=== PATIENT | female | born 1990 | race Caucasian/White ===

== ENCOUNTER 2018-07-22 00:55 | Emergency (ER) | payer OTHER ==
[2018-07-22] MEDS ORDERED: NORMAL SALINE 1000 ML 1,000 ML IV ONE (01:54)
[2018-07-22] MEDS ORDERED: METOCLOPRAMIDE HCL INJ/PF 10 MG/2 ML SDV IV ONE (01:55)
--- NOTE | 2018-07-22 01:56 | ER Document Report ---
ED GI/ - General Chief Complaint: Abdominal Pain Stated Complaint: ABDOMINAL CRAMPING Time Seen by Provider: 07/22/18 01:49 Notes: Patient is a 27-year-old female, at 6-8 weeks gestation by last menstrual period, that comes to the emergency department for chief complaint of pelvic pain with cramping that is worsening for the past several days. She states that cramping is slightly worse on the right side. She denies bleeding. She has been vomiting several times a day. She denies fever or chills. She is having normal bowel movements. She denies injury. Denies any past medical history. Family at bedside. TRAVEL OUTSIDE OF THE [place] IN LAST 30 DAYS: No - Related Data Allergies/Adverse Reactions: No Known Allergies Allergy (Unverified 07/22/18 01:54) Past Medical History - General Information source: Patient - Social History Smoking Status: Never Smoker Frequency of alcohol use: None Drug Abuse: None Lives with: Family Family History: Reviewed & Not Pertinent - Medical History Medical History: Negative Surgical Hx: Negative - Immunizations Immunizations up to date: Yes Hx Diphtheria, Pertussis, Tetanus Vaccination: Yes Review of Systems - Review of Systems Constitutional: No symptoms reported EENT: No symptoms reported Cardiovascular: No symptoms reported Respiratory: No symptoms reported Gastrointestinal: See HPI Genitourinary: See HPI Female Genitourinary: See HPI Musculoskeletal: No symptoms reported Skin: No symptoms reported Hematologic/Lymphatic: No symptoms reported Neurological/Psychological: No symptoms reported Physical Exam - Vital signs Vitals: Temp Pulse Resp BP Pulse Ox 98.6 F 66 16 118/64 98 07/22/18 00:56 07/22/18 00:56 07/22/18 00:56 07/22/18 00:56 07/22/18 00:56 - Notes Notes: GENERAL: Alert, interacts well. No acute distress. HEAD: Normocephalic, atraumatic. EYES: Pupils equal, round, and reactive to light. Extraocular movements intact. ENT: Oral mucosa dry, tongue midline. Oropharynx unremarkable. Airway patent. Nares patent, no nasal septal hematoma, TM's intact. NECK: Full range of motion. Supple. Trachea midline. LUNGS: Clear to auscultation bilaterally, no wheezes, rales, or rhonchi. No respiratory distress. HEART: Regular rate and rhythm. No murmur ABDOMEN: Tenderness in the right pelvic area, no severe tenderness or guarding. Nontender McBurney's point. Soft benign abdomen otherwise. No distention. Unremarkable bowel sounds. GENITOURINARY: Deferred EXTREMITIES: Moves all 4 extremities spontaneously. No edema, normal radial and dorsalis pedis pulses bilaterally. No cyanosis. BACK: no cervical, thoracic, lumbar midline tenderness. No saddle anesthesia, normal distal neurovascular exam. NEUROLOGICAL: Alert and oriented x3. Normal speech. [cranial nerves II through XII grossly intact]. PSYCH: Normal affect, normal mood. SKIN: Warm, dry, normal turgor. No rashes or lesions noted. Course - Re-evaluation Re-evalutation: Patient has mild right lower pelvic tenderness without guarding, McBurney's point is negative, remaining abdomen soft and benign. Patient is dry appearing on exam with dry mucous membranes, no tachycardia. Given IV fluids and nausea medication. Patient is well-appearing otherwise. CBC unremarkable, chemistry unremarkable, urine showing ketones in the urine. HCG elevated as expected. RhoGam is not indicated. Ultrasound showing living IUP at 6 weeks 3 days, probable subchorionic hemorrhage, probable resolving cyst on the right ovary. Discussed all findings with patient in detail, provided with copy of the report, discussed recommendations, follow-up, and return precautions. Patient asking for Reglan at home because she feels excellent now. Patient states understanding and agreement with plan. - Vital Signs Vital signs: Temp Pulse Resp BP Pulse Ox 98.6 F 66 16 118/64 98 07/22/18 00:56 07/22/18 00:56 07/22/18 00:56 07/22/18 00:56 07/22/18 00:56 - Laboratory Result Diagrams: 07/22/18 02:23 07/22/18 02:23 Laboratory results interpreted by me: 07/22/18 07/22/18 02:23 03:11 Beta HCG, Quant 94845.00 H Urine Ketones 20 H Discharge - Discharge Clinical Impression: Abdominal cramping affecting , Dehydration Vomiting Qualifiers: Vomiting type: unspecified Vomiting Intractability: non-intractable Nausea presence: with nausea Qualified Code(s): R11.2 - Nausea with vomiting, unspecified Condition: Stable Disposition: HOME, SELF-CARE Additional Instructions: Your ultrasound shows a living in the uterus at 6 weeks and 3 days. There is a cyst that appears to be resolving on the right side and there is a small subchorionic hemorrhage as we discussed. These are probably the cause of your cramping. Recommend pelvic rest (no intercourse, no intense physical activity until cleared by FRONT CLERK). I also recommend that you take the nausea medication and continue to hydrate. Follow up with FRONT CLERK closely. Return if you worsen including severe pain, fever, passing out, heavy bleeding, or any other concerning or worsening symptoms. Prescriptions: Metoclopramide HCl [Reglan] 5 mg PO ASDIR PRN #30 tablet PRN Reason: Referrals: HEYDI BEY MD [Primary Care Provider] - Follow up as needed
[2018-07-22 02:34] LABS: ABSOLUTE BASOPHILS # (AUTO) 0.1 10^3/uL (0.0-0.2); ABSOLUTE LYMPHOCYTES (AUTO) 2.4 10^3/uL (0.5-4.7); ABSOLUTE MONOCYTES (AUTO) 0.5 10^3/uL (0.1-1.4); ABSOLUTE NEUT (AUTO) 6.3 10^3/uL (1.7-8.2); BASOPHILS % (AUTO) 0.6 % (0-2); EOSINOPHILS % (AUTO) 0.4 % (0-6); HEMATOCRIT 40.3 % (36.0-47.0); HEMOGLOBIN 14.2 g/dL (12.0-15.5); LYMPHOCYTES % (AUTO) 25.6 % (13-45); MEAN CORPUSCULAR HEMOGLOBIN 30.2 pg (27.0-33.4); MEAN CORPUSCULAR HGB CONC 35.1 g/dL (32.0-36.0); MEAN CORPUSCULAR VOLUME 86 fl (80-97); MONOCYTES % (AUTO) 5.5 % (3-13); PLATELET COUNT 310 10^3/uL (150-450); RED BLOOD COUNT 4.68 10^6/uL (3.72-5.28); RED CELL DISTRIBUTION WIDTH 12.6 % (11.5-14.0); SEGMENTED NEUTROPHILS % (AUTO) 67.9 % (42-78); TOTAL CELLS COUNTED % (AUTO) 100 %; WHITE BLOOD COUNT 9.2 10^3/uL (4.0-10.5)
[2018-07-22 02:47] LABS: ANION GAP 11 (5-19); BLOOD UREA NITROGEN 10 mg/dL (7-20); CARBON DIOXIDE 25 mmol/L (22-30); CHLORIDE 103 mmol/L (98-107); GLUCOSE 85 mg/dL (75-110); POTASSIUM 3.7 mmol/L (3.6-5.0); SODIUM 138.8 mmol/L (137-145)
[2018-07-22 03:32] LABS: APPEARANCE,URINE CLOUDY; BILIRUBIN,URINE NEGATIVE (NEGATIVE); COLOR,URINE YELLOW; GLUCOSE, URINE NEGATIVE (NEGATIVE); KETONES,URINE 20 mg/dL (NEGATIVE); LEUKOCYTE ESTERASE,URINE NEGATIVE (NEGATIVE); NITRITE,URINE NEGATIVE (NEGATIVE); PROTEIN,URINE NEGATIVE (NEGATIVE); URINE SPECIFIC GRAVITY 1.008; UROBILINOGEN,URINE NEGATIVE mg/dL (<2.0)
--- NOTE | 2018-07-22 04:13 | RADIOLOGY REPORT (SQ) ---
EXAM DESCRIPTION: US TRANSVAGINAL COMPLETED DATE/TME: 07/22/2018 01:55 CLINICAL HISTORY: 27 years, Female, pelvic pain, first trimester COMPARISON: None. TECHNIQUE: Transvaginal sonographic images in a first trimester patient LIMITATIONS: None. FINDINGS: The uterus measures 8.8 x 7.5 x 4.4 cm. There is an intrauterine gestational sac with yolk sac and pole. heart tones were obtained at 117 bpm. Evaluation of the amniotic fluid volume and placenta not performed due to early gestational age. There is a hypoechoic area near the gestational sac which could likely reflects subchorionic hemorrhage measuring 3.1 x 1.2 x 0.6 cm. The right ovary measures 3.5 x 2.6 x 3.0 cm, the left 3.6 x 2.3 x 2.4 cm. Flow is seen to both ovaries. A small amount of free fluid near the left ovary. Probable involuting corpus luteal cyst of the right ovary measuring 2.3 x 2.1 cm. Current ultrasound age is 6 weeks 3 days based on a mean crown-rump length of 0.60 cm IMPRESSION: Single live intrauterine gestation with current ultrasound age 6 weeks 3 days. Hypoechoic area near the gestational sac consistent with subchorionic hemorrhage, as above. Small amount of free fluid near the left ovary. Probable involuting corpus luteal cyst copyright 2011 [email or web address]- All Rights Reserved
[2018-07-22 04:45] VITALS: BP 108/63
== END 2018-07-22 04:45 | disposition home or self-care (01) ==
LOC: ER 00:55
DX: O26.891 Other specified pregnancy related conditions, first trimester (principal); R10.2 Pelvic and perineal pain; R82.4 Acetonuria; O21.9 Vomiting of pregnancy, unspecified; O99.281 Endocrine, nutritional and metabolic diseases complicating pregnancy, first trimester; E86.0 Dehydration; Z3A.01 Less than 8 weeks gestation of pregnancy
CPT/HCPCS: 99284; 96374; 86900; 86901; 36415; 84702; 85025; 80048; 81001; 76817; 93976; J2765; J7030; 96361

== ENCOUNTER 2018-08-04 02:00 | Emergency (ER) | payer OTHER ==
[2018-08-04] MEDS ORDERED: METOCLOPRAMIDE HCL INJ/PF 10 MG/2 ML SDV IV ONE (02:44)
[2018-08-04] MEDS ORDERED: NORMAL SALINE 1000 ML 1,000 ML IV ONE (02:44)
--- NOTE | 2018-08-04 04:17 | ER Document Report ---
ED General - General Chief Complaint: OB Problem (<20wks) Stated Complaint: VOMITING Time Seen by Provider: 08/04/18 02:43 Primary Care Provider: HEYDI BEY MD [Primary Care Provider] - Follow up as needed Notes: Patient is a 27-year-old female at approximately 8 weeks gestation, has had a confirmed intrauterine via ultrasound who presents with complaints of nausea, vomiting, inability to tolerate oral intake for the past several days. Patient reports that she is unable to tolerate even water. Has been trying oral Reglan and Phenergan without relief as she states she vomited these up each time that she tries to take them. States this is similar to when she had hyperemesis during her previous . She denies any associated abdominal pain, vaginal bleeding, vaginal discharge or dysuria. Has not contacted her PHYSICIAN'S ASSISTANT regarding today's concerns. Symptoms have been relatively unchanged since onset. TRAVEL OUTSIDE OF THE [place] IN LAST 30 DAYS: No - Related Data Allergies/Adverse Reactions: No Known Allergies Allergy (Unverified 07/22/18 01:54) Past Medical History - General Information source: Patient - Social History Smoking Status: Never Smoker Frequency of alcohol use: None Drug Abuse: None Lives with: Spouse/Significant other Family History: Reviewed & Not Pertinent Renal/ Medical History: Denies: Hx Peritoneal Dialysis - Immunizations Immunizations up to date: Yes Hx Diphtheria, Pertussis, Tetanus Vaccination: Yes Review of Systems - Review of Systems Notes: Constitutional: Negative for fever. HENT: Negative for sore throat. Eyes: Negative for visual changes. Cardiovascular: Negative for chest pain. Respiratory: Negative for shortness of breath. Gastrointestinal: Negative for abdominal pain, positive for vomiting Genitourinary: Negative for dysuria. Musculoskeletal: Negative for back pain. Skin: Negative for rash. Neurological: Negative for headaches, weakness or numbness. 10 point ROS negative except as marked above and in HPI. Physical Exam - Vital signs Vitals: Temp Pulse Resp BP Pulse Ox 98.3 F 78 16 123/53 L 99 08/04/18 02:06 08/04/18 02:06 08/04/18 02:06 08/04/18 02:06 08/04/18 02:06 Interpretation: Normal Notes: PHYSICAL EXAMINATION: GENERAL: Well-appearing, well-nourished and in no acute distress. HEAD: Atraumatic, normocephalic. EYES: Pupils equal round and reactive to light, extraocular movements intact, sclera anicteric, conjunctiva are normal. ENT: nares patent, oropharynx clear without exudates. Moderately dry mucous membranes. NECK: Normal range of motion, supple without lymphadenopathy LUNGS: Breath sounds clear to auscultation bilaterally and equal. No wheezes rales or rhonchi. HEART: Regular rate and rhythm without murmurs ABDOMEN: Soft, nontender, normoactive bowel sounds. No guarding, no rebound. No masses appreciated. EXTREMITIES: Normal range of motion, no pitting or edema. No cyanosis. NEUROLOGICAL: No focal neurological deficits. Moves all extremities spontaneously and on command. PSYCH: Normal mood, normal affect. SKIN: Warm, Dry, normal turgor, no rashes or lesions noted. Course - Re-evaluation Re-evalutation: 08/04/18 04:15 Patient presents with persistent vomiting during . Vitals at time of arrival unremarkable without tachycardia or hypotension. Laboratories reveal a normal creatinine and no evidence of significant dehydration. Patient was able to tolerate oral intake here in the emergency department. IV fluids were provided. Bedside ultrasound shows appropriate heart rate for gestational age with active movement. No vaginal bleeding or discharge. Based on abdominal exam, vitals and history I do not suspect an acute appendicitis, cholestasis of , acute cholecystitis, pancreatitis, or bowel obstruction. Patient will be started on a combination of doxylamine and vitamin B6. At this time will discharge with return precautions and follow-up recommendations. Verbal discharge instructions given a the bedside and opportunity for questions given. Medication warnings reviewed. Patient is in agreement with this plan and has verbalized understanding of return precautions and the need for primary care follow-up in the next 24-72 hours. - Vital Signs Vital signs: Temp Pulse Resp BP Pulse Ox 98.3 F 78 16 123/53 L 99 08/04/18 02:06 08/04/18 02:06 08/04/18 02:06 08/04/18 02:06 08/04/18 02:06 - Laboratory Result Diagrams: 08/04/18 03:58 Discharge - Discharge Clinical Impression: , excessive vomiting, Dehydration Condition: Good Disposition: HOME, SELF-CARE Additional Instructions: You have been seen for vomiting during . You should continue to drink plenty of water and consider taking a solution such as Pedialyte if your having difficulty eating food. Please return if you become unable to drink any fluids for more than 12 hours, urinate less than twice a day, pass out, or have any other symptoms that are concerning to you. For nausea and vomiting during I recommend: Start with 10-12.5 mg of pyridoxine (vitamin B6) three times a day for 2 days. If not fully effective, Increase to 12.5 mg of pyridoxine four times a day for 2 days. If not fully effective, Increase to 25 mg of pyridoxine three times a day for 2 days. If not fully effective, Continue 25 mg pyridoxine 3 times a day, and add 12.5 mg of doxylamine before bedtime each day for 2 days. If not fully effective, Continue 25 mg pyridoxine 3 times a day, and take 12.5 mg of doxylamine twice a day. If not fully effective, Continue 25 mg pyridoxine 3 times a day, and take 12.5 mg of doxylamine three times a day. You may use rectal Phenergan for vomiting that is unable to be controlled by these oral medications Prescriptions: Promethazine HCl [Phenergan 25 mg Supp.rect] 1 supp OK Q6H #12 supp.rect Referrals: HEYDI BEY MD [Primary Care Provider] - Follow up in 3-5 days
[2018-08-04 04:25] LABS: APPEARANCE,URINE CLOUDY; BILIRUBIN,URINE NEGATIVE (NEGATIVE); COLOR,URINE YELLOW; GLUCOSE, URINE NEGATIVE (NEGATIVE); KETONES,URINE 80 mg/dL (NEGATIVE); LEUKOCYTE ESTERASE,URINE NEGATIVE (NEGATIVE); NITRITE,URINE NEGATIVE (NEGATIVE); PROTEIN,URINE 30 mg/dL (NEGATIVE); URINE SPECIFIC GRAVITY 1.023; UROBILINOGEN,URINE NEGATIVE mg/dL (<2.0)
[2018-08-04 04:29] LABS: ALANINE AMINOTRANSFERASE 8 U/L (9-52); ALBUMIN 4.5 g/dL (3.5-5.0); ALKALINE PHOSPHATASE 51 U/L (38-126); ANION GAP 12 (5-19); ASPARTATE AMINO TRANSFERASE 21 U/L (14-36); BILIRUBIN,DIRECT 0.3 mg/dL (0.0-0.4); BILIRUBIN,TOTAL 0.6 mg/dL (0.2-1.3); BLOOD UREA NITROGEN 12 mg/dL (7-20); CALCIUM 9.6 mg/dL (8.4-10.2); CARBON DIOXIDE 23 mmol/L (22-30); CHLORIDE 104 mmol/L (98-107); GLUCOSE 93 mg/dL (75-110); LIPASE 74.1 U/L (23-300); POTASSIUM 3.8 mmol/L (3.6-5.0); SODIUM 138.7 mmol/L (137-145); TOTAL PROTEIN 7.8 g/dL (6.3-8.2)
[2018-08-04 05:51] VITALS: BP 100/44
== END 2018-08-04 06:30 | disposition home or self-care (01) ==
LOC: ER 02:00
DX: O21.9 Vomiting of pregnancy, unspecified (principal); E86.0 Dehydration; Z3A.08 8 weeks gestation of pregnancy
CPT/HCPCS: 99284; 96361; 96374; 36415; 83690; 80053; 81001; J2765; J7030

== ENCOUNTER 2018-08-08 17:13 | Emergency (ER) | payer OTHER ==
[2018-08-08] MEDS ORDERED: METOCLOPRAMIDE HCL INJ/PF 10 MG/2 ML SDV IV ONE ×2 (17:55→19:47)
[2018-08-08] MEDS ORDERED: NORMAL SALINE 1000 ML 1,000 ML IV ONE (17:55)
--- NOTE | 2018-08-08 17:56 | ER Document Report ---
ED Medical Screen (RME) - General Chief Complaint: Abdominal Pain Stated Complaint: VOMITING, HEADACHE, DIZZY, STOMACH PAIN Time Seen by Provider: 08/08/18 17:52 Primary Care Provider: HEYDI BEY MD [Primary Care Provider] - Follow up as needed Notes: 27-year-old female patient 9 weeks with nausea vomiting of . She is taking Reglan, Zofran, and Unisom with vitamin B6. She continues to vomit, and has been vomiting continuously since 4 PM yesterday unable to keep anything down. Her partner reports a significant weight loss in the last 2 weeks. I have greeted and performed a rapid initial assessment of this patient. A comprehensive ED assessment and evaluation of the patient, analysis of test results and completion of the medical decision making process will be conducted by additional ED providers. TRAVEL OUTSIDE OF THE [place] IN LAST 30 DAYS: No - Related Data Allergies/Adverse Reactions: No Known Allergies Allergy (Unverified 07/22/18 01:54) Past Medical History Renal/ Medical History: Denies: Hx Peritoneal Dialysis - Immunizations Immunizations up to date: Yes Hx Diphtheria, Pertussis, Tetanus Vaccination: Yes Physical Exam - Vital signs Vitals: Temp Pulse Resp BP Pulse Ox 97.9 F 73 12 123/66 99 08/08/18 17:20 08/08/18 17:20 08/08/18 17:20 08/08/18 17:20 08/08/18 17:20 Course - Vital Signs Vital signs: Temp Pulse Resp BP Pulse Ox 97.9 F 73 12 123/66 99 08/08/18 17:20 08/08/18 17:20 08/08/18 17:20 08/08/18 17:20 08/08/18 17:20 Doctor's Discharge - Discharge Referrals: HEYDI BEY MD [Primary Care Provider] - Follow up as needed
[2018-08-08 18:31] LABS: APPEARANCE,URINE CLOUDY; BILIRUBIN,URINE NEGATIVE (NEGATIVE); COLOR,URINE YELLOW; GLUCOSE, URINE NEGATIVE (NEGATIVE); KETONES,URINE 80 mg/dL (NEGATIVE); LEUKOCYTE ESTERASE,URINE NEGATIVE (NEGATIVE); NITRITE,URINE NEGATIVE (NEGATIVE); PROTEIN,URINE 30 mg/dL (NEGATIVE); URINE SPECIFIC GRAVITY 1.026; UROBILINOGEN,URINE NEGATIVE mg/dL (<2.0)
[2018-08-08 18:38] LABS: ABSOLUTE BASOPHILS # (AUTO) 0.1 10^3/uL (0.0-0.2); ABSOLUTE LYMPHOCYTES (AUTO) 2.2 10^3/uL (0.5-4.7); ABSOLUTE MONOCYTES (AUTO) 0.8 10^3/uL (0.1-1.4); ABSOLUTE NEUT (AUTO) 9.3 10^3/uL (1.7-8.2); BASOPHILS % (AUTO) 0.4 % (0-2); EOSINOPHILS % (AUTO) 0.1 % (0-6); HEMATOCRIT 41.7 % (36.0-47.0); HEMOGLOBIN 14.7 g/dL (12.0-15.5); MEAN CORPUSCULAR HEMOGLOBIN 30.1 pg (27.0-33.4); MEAN CORPUSCULAR HGB CONC 35.3 g/dL (32.0-36.0); MEAN CORPUSCULAR VOLUME 85 fl (80-97); MONOCYTES % (AUTO) 6.2 % (3-13); PLATELET COUNT 347 10^3/uL (150-450); RED BLOOD COUNT 4.88 10^6/uL (3.72-5.28); RED CELL DISTRIBUTION WIDTH 12.3 % (11.5-14.0); SEGMENTED NEUTROPHILS % (AUTO) 75.3 % (42-78); TOTAL CELLS COUNTED % (AUTO) 100 %; WHITE BLOOD COUNT 12.3 10^3/uL (4.0-10.5)
[2018-08-08 19:28] LABS: ALANINE AMINOTRANSFERASE 25 U/L (9-52); ALKALINE PHOSPHATASE 46 U/L (38-126); ANION GAP 8 (5-19); ASPARTATE AMINO TRANSFERASE 17 U/L (14-36); BILIRUBIN,DIRECT 0.2 mg/dL (0.0-0.4); BILIRUBIN,TOTAL 0.5 mg/dL (0.2-1.3); BLOOD UREA NITROGEN 13 mg/dL (7-20); CALCIUM 8.6 mg/dL (8.4-10.2); CARBON DIOXIDE 25 mmol/L (22-30); CHLORIDE 103 mmol/L (98-107); GLUCOSE 79 mg/dL (75-110); POTASSIUM 3.5 mmol/L (3.6-5.0); TOTAL PROTEIN 6.6 g/dL (6.3-8.2)
--- NOTE | 2018-08-08 19:56 | ER Document Report ---
ED General - General Chief Complaint: Abdominal Pain Stated Complaint: VOMITING, HEADACHE, DIZZY, STOMACH PAIN Time Seen by Provider: 08/08/18 17:52 Primary Care Provider: HEYDI BEY MD [Primary Care Provider] - Follow up as needed Notes: Patient is a 27-year-old female at approximately 9 weeks gestation, has had a confirmed intrauterine via ultrasound who presents with complaints of nausea, vomiting, inability to tolerate oral intake for the past several days. This is been ongoing since she was last seen here in the emergency department by me. States that she has been able to tolerate small sips of fluids but often vomits even after these fluid intake attempts. She has been trying vitamin B6 and doxylamine, rectal Phenergan, Reglan without any relief. States this is similar to when she had hyperemesis during her previous . She denies any associated abdominal pain, vaginal bleeding, vaginal discharge or dysuria. She is scheduled to follow-up with her REPORTING COORDINATOR next week. Symptoms have been relatively unchanged since onset. TRAVEL OUTSIDE OF THE [place] IN LAST 30 DAYS: No - Related Data Allergies/Adverse Reactions: No Known Allergies Allergy (Unverified 07/22/18 01:54) Past Medical History - General Information source: Patient - Social History Smoking Status: Former Smoker Frequency of alcohol use: None Drug Abuse: None Lives with: Spouse/Significant other Family History: Reviewed & Not Pertinent Patient has suicidal ideation: No Patient has homicidal ideation: No Renal/ Medical History: Denies: Hx Peritoneal Dialysis - Immunizations Immunizations up to date: Yes Hx Diphtheria, Pertussis, Tetanus Vaccination: Yes Review of Systems - Review of Systems Notes: Constitutional: Negative for fever. HENT: Negative for sore throat. Eyes: Negative for visual changes. Cardiovascular: Negative for chest pain. Respiratory: Negative for shortness of breath. Gastrointestinal: Positive for nausea and vomiting Genitourinary: Negative for dysuria. Musculoskeletal: Negative for back pain. Skin: Negative for rash. Neurological: Negative for headaches, weakness or numbness. 10 point ROS negative except as marked above and in HPI. Physical Exam - Vital signs Vitals: Temp Pulse Resp BP Pulse Ox 97.9 F 73 12 123/66 99 08/08/18 17:20 08/08/18 17:20 08/08/18 17:20 08/08/18 17:20 08/08/18 17:20 Interpretation: Normal Notes: PHYSICAL EXAMINATION: GENERAL: Well-appearing, well-nourished and in no acute distress. HEAD: Atraumatic, normocephalic. EYES: Pupils equal round and reactive to light, extraocular movements intact, sclera anicteric, conjunctiva are normal. ENT: nares patent, oropharynx clear without exudates. Moderately dry mucous membranes. NECK: Normal range of motion, supple without lymphadenopathy LUNGS: Breath sounds clear to auscultation bilaterally and equal. No wheezes rales or rhonchi. HEART: Regular rate and rhythm without murmurs ABDOMEN: Soft, nontender, normoactive bowel sounds. No guarding, no rebound. No masses appreciated. EXTREMITIES: Normal range of motion, no pitting or edema. No cyanosis. NEUROLOGICAL: No focal neurological deficits. Moves all extremities spontaneously and on command. PSYCH: Normal mood, normal affect. SKIN: Warm, Dry, normal turgor, no rashes or lesions noted. Course - Re-evaluation Re-evalutation: 08/08/18 19:55 Patient presents with persistent vomiting during . Vitals at time of arrival unremarkable without tachycardia or hypotension. Laboratories reveal a normal creatinine and no evidence of significant dehydration. Patient was able to tolerate oral intake here in the emergency department. IV fluids were provided. Bedside ultrasound shows appropriate heart rate for gestational age with active movement. No vaginal bleeding or discharge. Based on abdominal exam, vitals and history I do not suspect an acute appendicitis, cholestasis of , acute cholecystitis, pancreatitis, or bowel obstruction. Unfortunately the patient has not been responsive to typical antiemetic regimens has she has tried rectal Phenergan, oral Zofran, oral Reglan, and doxylamine combined with vitamin B6 all without any relief. I have advised her that there is concern that she could be developing hyperemesis gravidarum then she will need to follow closely with her REPORTING COORDINATOR regarding this concern. At this time will discharge with return precautions and follow-up janice mmendations. Verbal discharge instructions given a the bedside and opportunity for questions given. Medication warnings reviewed. Patient is in agreement with this plan and has verbalized understanding of return precautions and the need for primary care follow-up in the next 24-72 hours. - Vital Signs Vital signs: Temp Pulse Resp BP Pulse Ox 97.9 F 73 12 123/66 99 08/08/18 17:20 08/08/18 17:20 08/08/18 17:20 08/08/18 17:20 08/08/18 17:20 - Laboratory Result Diagrams: 08/08/18 18:09 08/08/18 19:03 Laboratory results interpreted by me: 08/08/18 08/08/18 08/08/18 18:09 18:09 19:03 WBC 12.3 H Absolute Neutrophils 9.3 H Sodium 136.0 L Potassium 3.5 L Urine Protein 30 H Urine Ketones 80 H Discharge - Discharge Clinical Impression: , excessive vomiting, Dehydration Condition: Good Disposition: HOME, SELF-CARE Additional Instructions: You have been seen for vomiting during . You should continue to drink plenty of water and consider taking a solution such as Pedialyte if your having difficulty eating food. Please return if you become unable to drink any fluids for more than 12 hours, urinate less than twice a day, pass out, or have any other symptoms that are concerning to you. Referrals: HEYDI BEY MD [Primary Care Provider] - Follow up as needed
[2018-08-08 20:09] VITALS: BP 112/62
== END 2018-08-08 20:10 | disposition home or self-care (01) ==
LOC: ER 17:13
DX: O21.9 Vomiting of pregnancy, unspecified (principal); O26.891 Other specified pregnancy related conditions, first trimester; E86.0 Dehydration; R10.9 Unspecified abdominal pain; R51 Headache; R42 Dizziness and giddiness; Z3A.09 9 weeks gestation of pregnancy; Z87.891 Personal history of nicotine dependence
CPT/HCPCS: 96376; 99284; 96361; 96374; 36415; 85025; 80053; 81001; J2765; J7030

== ENCOUNTER 2018-10-02 23:50 | Emergency (ER) | payer OTHER ==
--- NOTE | 2018-10-02 23:56 | ER Document Report ---
ED Medical Screen (RME) - General Stated Complaint: ABDOMINAL PAIN Time Seen by Provider: 10/02/18 23:53 Primary Care Provider: HEYDI BEY MD [Primary Care Provider] - Follow up as needed Mode of Arrival: Ambulatory Information source: Patient Notes: Patient is an otherwise healthy 28-year-old female who presents to the emergency department at 16 weeks gestation with complaint of leakage of clear fluid from her vagina. Patient reports mild low abdominal cramping but denies any vaginal bleeding. Patient is a . She reports she has a history of premature rupture of membranes. Patient is seen by [facility]. TRAVEL OUTSIDE OF THE [place] IN LAST 30 DAYS: No - Related Data Allergies/Adverse Reactions: No Known Allergies Allergy (Unverified 07/22/18 01:54) Past Medical History Renal/ Medical History: Denies: Hx Peritoneal Dialysis - Immunizations Immunizations up to date: Yes Hx Diphtheria, Pertussis, Tetanus Vaccination: Yes Doctor's Discharge - Discharge Referrals: HEYDI BEY MD [Primary Care Provider] - Follow up as needed
[2018-10-03 00:49] VITALS: BP 135/54
[2018-10-03 01:06] LABS: ABSOLUTE BASOPHILS # (AUTO) 0.1 10^3/uL (0.0-0.2); ABSOLUTE EOSINOPHILS # (AUTO) 0.1 10^3/uL (0.0-0.6); ABSOLUTE LYMPHOCYTES (AUTO) 2.9 10^3/uL (0.5-4.7); ABSOLUTE MONOCYTES (AUTO) 0.5 10^3/uL (0.1-1.4); ABSOLUTE NEUT (AUTO) 5.8 10^3/uL (1.7-8.2); BASOPHILS % (AUTO) 0.6 % (0-2); HEMATOCRIT 37.7 % (36.0-47.0); HEMOGLOBIN 13.2 g/dL (12.0-15.5); LYMPHOCYTES % (AUTO) 30.8 % (13-45); MEAN CORPUSCULAR HEMOGLOBIN 30.3 pg (27.0-33.4); MEAN CORPUSCULAR HGB CONC 34.9 g/dL (32.0-36.0); MEAN CORPUSCULAR VOLUME 87 fl (80-97); MONOCYTES % (AUTO) 5.6 % (3-13); PLATELET COUNT 304 10^3/uL (150-450); RED BLOOD COUNT 4.36 10^6/uL (3.72-5.28); RED CELL DISTRIBUTION WIDTH 12.9 % (11.5-14.0); TOTAL CELLS COUNTED % (AUTO) 100 %; WHITE BLOOD COUNT 9.3 10^3/uL (4.0-10.5)
[2018-10-03 01:22] LABS: APPEARANCE,URINE CLOUDY; BILIRUBIN,URINE NEGATIVE (NEGATIVE); COLOR,URINE YELLOW; GLUCOSE, URINE NEGATIVE (NEGATIVE); KETONES,URINE NEGATIVE (NEGATIVE); LEUKOCYTE ESTERASE,URINE NEGATIVE (NEGATIVE); NITRITE,URINE NEGATIVE (NEGATIVE); PROTEIN,URINE NEGATIVE (NEGATIVE); URINE SPECIFIC GRAVITY 1.015; UROBILINOGEN,URINE NEGATIVE mg/dL (<2.0)
--- NOTE | 2018-10-03 01:38 | RADIOLOGY REPORT (SQ) ---
EXAM DESCRIPTION: US LIMITED COMPLETED DATE/TME: 10/02/2018 23:54 CLINICAL HISTORY: 28 years, Female, 14 week , leaking fluid COMPARISON: Prior ultrasound 07/22/2018 TECHNIQUE: Emergent ultrasound LIMITATIONS: None. FINDINGS: Cervical length is 3.7 cm. The cervical os is closed. There is a single, live intrauterine gestation in the breech presentation. heart tones obtained at 144 bpm. The placenta is posterior in location without evidence for previa. Current ultrasound age is 16 weeks 4 days. IMPRESSION: Limited unremarkable ultrasound. Nonemergent follow-up recommended. copyright 2010 [employer]- All Rights Reserved
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
== END 2018-10-03 04:22 | disposition home or self-care (01) ==
LOC: ER 23:50
DX: O26.892 Other specified pregnancy related conditions, second trimester (principal); N89.8 Other specified noninflammatory disorders of vagina; R10.30 Lower abdominal pain, unspecified; Z3A.16 16 weeks gestation of pregnancy
CPT/HCPCS: 36415; 76815; 81001; 85025; 99284

== ENCOUNTER → 2019-02-25 | Outpatient (CLI) | payer OTHER | LOC: LAB 16:17 | PROVIDERS: ATTEND Student in an Organized Health Care Education/Training Program | DX: L29.9 Pruritus, unspecified (principal) | CPT/HCPCS: 36415; 82542 ==

== ENCOUNTER 2020-06-27 19:04 | Emergency (ER) | payer OTHER ==
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
[2020-06-27 21:23] VITALS: BP 110/24
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
== END 2020-06-27 21:20 | disposition home or self-care (01) ==
LOC: ER 19:04
DX: S09.90XA Unspecified injury of head, initial encounter (principal); Y04.2XXA Assault by strike against or bumped into by another person, initial encounter; Y92.239 Unspecified place in hospital as the place of occurrence of the external cause; Y99.0 Civilian activity done for income or pay; F07.81 Postconcussional syndrome; R11.2 Nausea with vomiting, unspecified; R53.83 Other fatigue; Z87.891 Personal history of nicotine dependence
CPT/HCPCS: 70450; 72125; 81025; 99284